=== PATIENT | female | born 1980 | race Caucasian/White ===

== ENCOUNTER 2017-01-05 08:49 | Emergency (ER) | payer MEDICAID ==
[2017-01-05] MEDS ORDERED: DIPHENHYDRAMINE HCL 25 MG CAPSULE ONE (10:21)
== END 2017-01-05 13:45 | disposition home or self-care (01) ==
LOC: ER 08:49
DX: G43.909 Migraine, unspecified, not intractable, without status migrainosus (principal); M79.1 Myalgia; R11.0 Nausea; E03.9 Hypothyroidism, unspecified
CPT/HCPCS: 70450; 99284

== ENCOUNTER 2017-01-20 07:41 | Emergency (ER) | payer MEDICAID ==
[2017-01-20] MEDS ORDERED: NORMAL SALINE 1000 ML 1,000 ML IV ONE (08:38)
[2017-01-20] MEDS ORDERED: KETOROLAC TROMETHAMINE 60 MG/2 ML SDV IM ONE (08:39)
[2017-01-20] MEDS ORDERED: PROCHLORPERAZINE EDISYLATE INJ 10 MG/2 ML VIAL IV ONE (08:39)
--- NOTE | 2017-01-20 08:39 | ER Document Report ---
ED Headache - General Chief Complaint: Headache Stated Complaint: HEADACHE Time Seen by Provider: 01/20/17 08:38 Mode of Arrival: Ambulatory Information source: Patient Notes: -Patient is a 36-year-old female with a history of migraines presents to the ER today for a migraine for 3 weeks. Patient has been seen here in the emergency department for this migraine, states that it did improve with some Benadryl given here in the emergency department during that visit, but when she went home after a few hours it came back. She states that some mornings it hurts until she wants to cry. She does have an appointment with the neurologist on the sixth of this month. She has been trying Tylenol and Motrin for the pain at home which have not been helping. TRAVEL OUTSIDE OF THE [place] IN LAST 30 DAYS: No - Related Data Allergies/Adverse Reactions: Penicillins Allergy (Verified 01/20/17 07:45) prednisone Allergy (Verified 01/20/17 07:45) Sulfa (Sulfonamide Antibiotics) Allergy (Verified 01/20/17 07:45) Past Medical History - General Information source: Patient - Social History Smoking Status: Current Every Day Smoker Family History: Reviewed & Not Pertinent Patient has suicidal ideation: No Patient has homicidal ideation: No Renal/ Medical History: Denies: Hx Peritoneal Dialysis Review of Systems - Review of Systems Constitutional: No symptoms reported EENT: No symptoms reported Cardiovascular: No symptoms reported Respiratory: No symptoms reported Gastrointestinal: No symptoms reported Genitourinary: No symptoms reported Female Genitourinary: No symptoms reported Musculoskeletal: No symptoms reported Skin: No symptoms reported Hematologic/Lymphatic: See HPI Neurological/Psychological: No symptoms reported Physical Exam - Vital signs Vitals: Temp Pulse Resp BP Pulse Ox 98.8 F 100 16 158/82 H 99 01/20/17 07:45 01/20/17 07:45 01/20/17 07:45 01/20/17 07:45 01/20/17 07:45 - Notes Notes: PHYSICAL EXAMINATION: GENERAL: Well-appearing, smiling and talkative, and in no acute distress. HEAD: Atraumatic, normocephalic. EYES: Pupils equal round and reactive to light, extraocular movements intact, sclera anicteric, conjunctiva are normal. ENT: ear canals without erythema or foreign body, TMs pearly chandler with good bony landmarks, nares patent, oropharynx clear without exudates. Moist mucous membranes. NECK: No nuchal rigidity, normal range of motion, supple without lymphadenopathy LUNGS: CTAB and equal. No wheezes rales or rhonchi. HEART: Regular rate and rhythm without murmurs ABDOMEN: Soft, no tenderness. No guarding, no rebound BACK: no vertebral tenderness, normal ROM GI/: no CVA tenderness EXTREMITIES: Normal range of motion, no pitting edema. No cyanosis. NEUROLOGICAL: normal brudzinkis and kernig's tests, Cranial nerves grossly intact. Normal sensory/motor exams. PSYCH: Normal mood, normal affect. SKIN: Warm, Dry, normal turgor, no rashes or lesions noted Course - Re-evaluation Re-evalutation: 01/20/17 12:19 Patient states that she felt better after IV fluids, Compazine and Toradol. Labs are unremarkable today. Patient has follow-up appointment with neurologist in 5 days and I encouraged her to keep that appointment. - Vital Signs Vital signs: Temp Pulse Resp BP Pulse Ox 97.5 F 87 20 127/71 H 97 01/20/17 12:44 01/20/17 12:44 01/20/17 12:44 01/20/17 12:44 01/20/17 12:44 - Laboratory Result Diagrams: 01/20/17 09:10 01/20/17 09:10 Laboratory results interpreted by me: 01/20/17 01/20/17 01/20/17 09:10 09:10 09:10 Seg Neutrophils % 91.4 H Lymphocytes % 6.6 L Monocytes % 1.1 L Total Bilirubin 1.6 H Urine Blood MODERATE H Discharge - Discharge Clinical Impression: Migraine Qualifiers: Migraine type: unspecified Status migrainosus presence: without status migrainosus Intractability: not intractable Qualified Code(s): G43.909 - Migraine, unspecified, not intractable, without status migrainosus Condition: Stable Disposition: HOME, SELF-CARE Additional Instructions: Return immediately for any new or worsening symptoms. Follow up with neurologist, keep appointment scheduled in 5 days. Forms: Return to Work
[2017-01-20 09:23] LABS: ABSOLUTE LYMPHOCYTES (AUTO) 0.5 10^3/uL (0.5-4.7); ABSOLUTE MONOCYTES (AUTO) 0.1 10^3/uL (0.1-1.4); ABSOLUTE NEUT (AUTO) 7.2 10^3/uL (1.7-8.2); BASOPHILS % (AUTO) 0.5 % (0-2); EOSINOPHILS % (AUTO) 0.4 % (0-6); HEMATOCRIT 39.7 % (36.0-47.0); HGB HCT DIFFERENCE -0.7; LYMPHOCYTES % (AUTO) 6.6 % (13-45); MEAN CORPUSCULAR HEMOGLOBIN 27.1 pg (27.0-33.4); MEAN CORPUSCULAR HGB CONC 32.8 g/dL (32.0-36.0); MEAN CORPUSCULAR VOLUME 83 fl (80-97); MONOCYTES % (AUTO) 1.1 % (3-13); RED CELL DISTRIBUTION WIDTH 13.2 % (11.5-14.0); SEGMENTED NEUTROPHILS % (AUTO) 91.4 % (42-78); WHITE BLOOD COUNT 7.9 10^3/uL (4.0-10.5)
[2017-01-20 09:34] LABS: ALANINE AMINOTRANSFERASE 31 U/L (9-52); ALBUMIN 4.2 g/dL (3.5-5.0); ALKALINE PHOSPHATASE 53 U/L (38-126); ANION GAP 14 (5-19); ASPARTATE AMINO TRANSFERASE 18 U/L (14-36); BILIRUBIN,DIRECT 0.2 mg/dL (0.0-0.4); BILIRUBIN,TOTAL 1.6 mg/dL (0.2-1.3); BLOOD UREA NITROGEN 11 mg/dL (7-20); CALCIUM 9.2 mg/dL (8.4-10.2); CARBON DIOXIDE 25 mmol/L (22-30); CHLORIDE 105 mmol/L (98-107); CREATININE RESULT 0.86 mg/dL (0.52-1.25); GLUCOSE 99 mg/dL (75-110); TOTAL PROTEIN 7.1 g/dL (6.3-8.2)
[2017-01-20 10:22] LABS: APPEARANCE,URINE SLIGHTLY-CLOUDY; BILIRUBIN,URINE NEGATIVE (NEGATIVE); GLUCOSE, URINE NEGATIVE (NEGATIVE); KETONES,URINE NEGATIVE (NEGATIVE); LEUKOCYTE ESTERASE,URINE NEGATIVE (NEGATIVE); NITRITE,URINE NEGATIVE (NEGATIVE); PROTEIN,URINE NEGATIVE (NEGATIVE); URINE SPECIFIC GRAVITY 1.008; UROBILINOGEN,URINE NEGATIVE mg/dL (<2.0)
[2017-01-20] MEDS ORDERED: SUMATRIPTAN SUCCINATE 50 MG TABLET PO ONE (12:13)
[2017-01-20 12:46] VITALS: BP 127/71
== END 2017-01-20 12:44 | disposition home or self-care (01) ==
LOC: ER 07:41
DX: G43.909 Migraine, unspecified, not intractable, without status migrainosus (principal); F17.200 Nicotine dependence, unspecified, uncomplicated; Z88.0 Allergy status to penicillin; Z88.2 Allergy status to sulfonamides
CPT/HCPCS: 99283; 96372; 96361; 96374; 36415; 85025; 81025; 80053; 81001; J1885; J0780; J7030; J3490

== ENCOUNTER 2017-12-12 22:15 | Emergency (ER) | payer MEDICAID ==
[2017-12-12 22:30] VITALS: BP 133/85
--- NOTE | 2017-12-13 00:29 | ER Document Report ---
ED General - General Chief Complaint: Insect Bite Stated Complaint: BUG BITE Time Seen by Provider: 12/13/17 00:23 Mode of Arrival: Ambulatory Information source: Patient TRAVEL OUTSIDE OF THE [place] IN LAST 30 DAYS: No - HPI Notes: 37-year-old female presents today with right thigh redness 1 day ago. Pain is 4 out of 10, throbbing achy. No [id number] medications have been tried. Worse with time, nothing makes better. Has not tried any hot compresses, only tried cold compresses. Denies fevers, chills, chest pain,palpitations, shortness of breath, dyspnea, nausea, vomiting, diarrhea, abdominal pain, hematuria,blurred vision, double vision, loss of vision, speech changes, LH, dizziness, syncope, headaches, wheezing, ST, URI, neck pain, weakness, bowel or bladder dysfunction, saddle anesthesia, numbness or tingling in bilateral upper or lower extremities equally, muscle paralysis, weakness in bilateral upper or lower extremities equally or rash. Denies IV drug use. - Related Data Allergies/Adverse Reactions: Penicillins Allergy (Verified 01/20/17 07:45) prednisone Allergy (Verified 01/20/17 07:45) Sulfa (Sulfonamide Antibiotics) Allergy (Verified 01/20/17 07:45) Past Medical History - General Information source: Patient - Social History Smoking Status: Unknown if Ever Smoked Family History: Reviewed & Not Pertinent Renal/ Medical History: Denies: Hx Peritoneal Dialysis Review of Systems - Review of Systems Constitutional: No symptoms reported EENT: No symptoms reported Cardiovascular: No symptoms reported Respiratory: No symptoms reported Gastrointestinal: No symptoms reported Genitourinary: No symptoms reported Female Genitourinary: No symptoms reported Musculoskeletal: No symptoms reported Skin: See HPI Hematologic/Lymphatic: No symptoms reported Neurological/Psychological: No symptoms reported Physical Exam - Vital signs Vitals: Temp Pulse Resp BP Pulse Ox 97.6 F 83 18 133/85 H 98 12/12/17 22:28 12/12/17 22:28 12/12/17 22:28 12/12/17 22:28 12/12/17 22:28 - Notes Notes: PHYSICAL EXAMINATION: GENERAL: Well-appearing, well-nourished and in no acute distress. HEAD: Atraumatic, normocephalic. EYES: Pupils equal round and reactive to light, extraocular movements intact, conjunctiva are normal. ENT: Nares patent, oropharynx clear without exudates. Moist mucous membranes. NECK: Normal range of motion, supple without lymphadenopathy LUNGS: Breath sounds clear to auscultation bilaterally and equal. No wheezes rales or rhonchi. HEART: Regular rate and rhythm without murmurs ABDOMEN: Soft, nontender, nondistended abdomen. No guarding, no rebound. No masses appreciated. Female : deferred Musculoskeletal: Normal range of motion, no pitting or edema. No cyanosis. right thigh with area of induration approximately 1 cm x 1 cm. No surrounding erythema, induration or surrounding lymphadenopathies. NEUROLOGICAL: Cranial nerves grossly intact. Normal speech, normal gait. Normal sensory, motor exams PSYCH: Normal mood, normal affect. SKIN: Warm, Dry, normal turgor, no rashes or lesions noted. Dictation was performed using [employer] recognition software Course - Re-evaluation Re-evalutation: Healthy female who is afebrile and not in any distress resents for evaluation of cellulitis to her right thigh. Advised patient to apply warm compresses 20 minutes on 20 minutes off several times a day, take antibiotics with food as directed, evaluate for any worsening erythema, warmth to touch or induration. Take [id number] ibuprofen and Tylenol as needed for pain. Follow-up with primary care provider within 3 days. Patient presents with symptoms most consistent with an acute cellulitis. Vitals within normal limits. Patient does not meet sepsis criteria is overall very well in appearance. Exam and history are not consistent with DVT. Patient will be started on coverage for both staph and strep. At this time will discharge with return precautions and follow-up recommendations. Verbal discharge instructions given a the bedside and opportunity for questions given. Medication warnings reviewed. Patient is in agreement with this plan and has verbalized understanding of return precautions and the need for primary care follow-up in the next 24-72 hours. - Vital Signs Vital signs: Temp Pulse Resp BP Pulse Ox 97.6 F 83 18 133/85 H 98 12/12/17 22:28 12/12/17 22:28 12/12/17 22:28 12/12/17 22:28 12/12/17 22:28 Discharge - Discharge Clinical Impression: Cellulitis Qualifiers: Site of cellulitis: extremity Site of cellulitis of extremity: lower extremity Laterality: right Qualified Code(s): L03.115 - Cellulitis of right lower limb Condition: Good Disposition: [facility] Instructions: Cellulitis ([facility]), MRSA Cellulitis ([facility]) Additional Instructions: Cellulitis You have an infection of your skin and underlying soft tissues called cellulitis. This is due to bacteria, which can enter through any break in the skin, or even through an irritated hair follicle. Untreated, cellulitis will usually worsen. Antibiotics are required. Usually, warm packs or warm soaks, and elevation of the infected area are recommended. You should start getting better within 24 to 36 hours. Most infections respond quickly to the right medication. Follow-up care is important, however, to check for abscess (boil) formation, unsuspected foreign body, or resistant infection. If you develop fever, chills, or if the area of infection is becoming rapidly more swollen or painful, call the doctor at once. Warm compress, 20 minutes on 20 minutes off several times a day. Take antibiotics with food. Eat yogurt daily to prevent loose stool. Follow-up with primary care provider within 3 days. Return immediately for any new or worsening symptoms. The rash is likely due to infection of your skin. You need to take the antibiotics as prescribed. Do not stop even if the rash goes away until you have completed all the antibiotics. The area of redness was traced out here in the emergency department with a marking pen. You need to return to emergency department if the redness spreads outside of this area by more than 2 cm in any direction. You should also return if you develop fevers with temperature greater than 101, persistent vomiting, worsening pain, or have any other symptoms that are concerning to you. Follow up with primary care provider, call tomorrow to make followup appointment.
== END 2017-12-13 01:45 | disposition home health service (06) ==
LOC: ER 22:15
DX: L03.115 Cellulitis of right lower limb (principal); Z88.0 Allergy status to penicillin; Z88.2 Allergy status to sulfonamides; Z88.8 Allergy status to other drugs, medicaments and biological substances
CPT/HCPCS: 99281

== ENCOUNTER 2018-08-20 16:52 | Emergency (ER) | payer MEDICAID ==
--- NOTE | 2018-08-20 18:25 | ER Document Report ---
ED General - General Chief Complaint: Rash Stated Complaint: HEADACHE, DIZZY Time Seen by Provider: 08/20/18 17:19 Notes: Patient is a 38-year-old female that is 20 weeks gravid that presents to the emergency department for chief complaint of rash, and states she is not feeling the baby move and was concerned about this as well. Patient states that she has been dealing with a rash on her arms for approximately 2 weeks, she was seen by her primary and was started on a steroid cream and it only seemed to get worse. It is an itching rash on both arms, circular in pattern. She also developed some itching on her flanks bilaterally. Denies any rash on her abdomen, or legs. She states that recently they do live in a mobile home, the change the toilet out, and thinks may be she had mold exposure as well. She denies any new detergents, new foods, she denies history of seasonal allergies, or food allergies. She denies having any abdominal pain or cramping or dysuria or hematuria related to her . Denies any abnormal vaginal bleeding. Past Medical History: Hypothyroidism, vitamin D deficiency Past Surgical History: Denies pertinent or recent surgical history Social History: Denies tobacco, alcohol or drug use. Family History: Reviewed and noncontributory for presenting illness Allergies: Reviewed, see documented allergy list. REVIEW OF SYSTEMS: Other than noted above, the 12 point review of systems was reviewed with the patient and were negative, all pertinent findings are included in the HPI. PHYSICAL EXAMINATION: Vital signs reviewed, nursing noted reviewed. GENERAL: Well-appearing, well-developed female, no acute distress. HEAD: Atraumatic, normocephalic. EYES: Eyes appear normal, extraocular movements intact, sclera anicteric, conjunctiva are normal. ENT: nares patent, oropharynx clear without exudates. Moist mucous membranes. NECK: Normal range of motion, supple without lymphadenopathy LUNGS: Breath sounds clear to auscultation bilaterally and equal. No wheezes rales or rhonchi. HEART: Regular rate and rhythm without murmurs ABDOMEN: Soft, gravid, nontender, normoactive bowel sounds. No rebound, guarding, or rigidity. No masses appreciated. EXTREMITIES: Nontender, good range of motion, no pitting or edema. NEUROLOGICAL: No focal neurological deficits. Moves all extremities spontaneously Motor and sensory grossly intact on exam. PSYCH: Normal mood, normal affect. SKIN: Warm, Dry, normal turgor, patient has 2 large patches, with central clearing, with raised urticarial appearing lesions on the outside of the rings, that the most consistent with tinea corporis. She has mild excoriations also noted on the flanks bilaterally, without specific rash pattern. TRAVEL OUTSIDE OF THE [place] IN LAST 30 DAYS: No - Related Data Allergies/Adverse Reactions: Penicillins Allergy (Verified 01/20/17 07:45) prednisone Allergy (Verified 01/20/17 07:45) Sulfa (Sulfonamide Antibiotics) Allergy (Verified 01/20/17 07:45) Past Medical History - Social History Smoking Status: Unknown if Ever Smoked Family History: Reviewed & Not Pertinent Patient has suicidal ideation: No Patient has homicidal ideation: No Renal/ Medical History: Denies: Hx Peritoneal Dialysis Physical Exam - Vital signs Vitals: Temp Pulse Resp BP Pulse Ox 98.5 F 80 16 138/72 H 100 08/20/18 16:57 08/20/18 16:57 08/20/18 16:57 08/20/18 16:57 08/20/18 16:57 Course - Re-evaluation Re-evalutation: Patient appears well on exam, her skin exam was most consistent with multiple areas of tinea corporis, we will treat her with miconazole cream, twice daily for 1 week, and have her follow-up with [facility] and her primary care physician. Advised to discontinue the steroid cream that was previously prescribed. heart tones were 144 bpm, I did briefly do a limited OB ultrasound transabdominally, the demonstrated good movement, and visualized beating hard. Patient was given copies of images obtained. Patient was agreeable to plan of care and discharged home. - Vital Signs Vital signs: Temp Pulse Resp BP Pulse Ox 97.7 F 76 16 130/72 H 100 08/20/18 19:05 08/20/18 19:05 08/20/18 16:57 08/20/18 19:05 08/20/18 19:05 Discharge - Discharge Clinical Impression: Tinea corporis Condition: Stable Disposition: HOME, SELF-CARE Instructions: Ringworm (Tinea Corporis) ([facility]) Prescriptions: RX: Miconazole Nitrate [Anti-Fungal Cream] 113 gm TP BID #1 tube Referrals: BREANNA BARCENAS MD [Primary Care Provider] - Follow up as needed [facility] [Provider Group] - Follow up in 3-5 days
[2018-08-20 19:08] VITALS: BP 130/72
== END 2018-08-20 19:08 | disposition home or self-care (01) ==
LOC: ER 16:52
DX: O26.92 Pregnancy related conditions, unspecified, second trimester (principal); B35.4 Tinea corporis; R51 Headache; R42 Dizziness and giddiness; E03.9 Hypothyroidism, unspecified; Z3A.20 20 weeks gestation of pregnancy; Z88.0 Allergy status to penicillin; Z88.2 Allergy status to sulfonamides
CPT/HCPCS: 99283